=== PATIENT | female | born 1985 | race Caucasian/White ===

== ENCOUNTER 2016-10-17 08:47 | Emergency (ER) | payer SELFPAY ==
[2016-10-17 08:58] VITALS: BP 122/64; PULSE 90; TEMP 98.3; BMI 27.5
[2016-10-17] MEDS ORDERED: KETOROLAC TROMETHAMINE 10 MG TAB PO ONE (09:25)
--- NOTE | 2016-10-17 09:27 | EDPRACDOC ---
- General Information Chief Complaint: Toothache Stated Complaint: TOOTH PAIN Time Seen by Provider: 10/17/16 09:24 Mode Of Arrival: Car Home Medications: Home Medications Clindamycin HCl 300 mg PO TID 01/15/16 Ibuprofen 800 mg PO TID PRN 01/15/16 Amoxicillin [Amoxil] 500 mg PO BID #14 cap 10/17/16 Ketorolac Tromethamine 10 mg PO Q6H PRN #20 tab 10/17/16 Allergies/Adverse Reactions: Allergies Allergy/AdvReac Type Severity Reaction Status Date / Time Sulfa (Sulfonamide Allergy Hives* Verified 10/17/16 08:58 Antibiotics) - History of Present Illness Onset: 2 DAYS Pain Severity: Reports: Mild Relevant History of: Reports: None Modifying Factors: improves with: None Associated Signs and Symptoms: Reports: None - Treatment Prior to ED Arrival Reported Medications/Treatment INFORMATICS MANAGER Treated With Medication INFORMATICS MANAGER YES Aspirin (Dose/Time) ASA 325MG X 2-0800 ED Past Medical History - History Reviewed Yes Nurses notes reviewed and agree except as marked - Patient Medical History Systemic History: Denies: Cancer - Social Medical History Smoking Status: Heavy tobacco smoker (5 or more cigarettes/day or daily pipe/ cigar) EDM Review of Systems - Review of Systems ROS Negative Except as Marked: Yes All systems reviewed and were negative except as marked - Physical Exam Constitutional: No apparent distress Oriented to: Time, Person, Place Last recorded Vital Signs: Last Vital Signs Temp 98.3 F 10/17/16 08:55 Pulse 90 10/17/16 08:55 Resp 18 10/17/16 08:55 BP 122/64 10/17/16 08:55 Pulse Ox 97 10/17/16 08:55 Oxygen Pulse Oxygen Saturation 97 O2 Device Oxygen Flow Rate Fraction of Inspired Oxygen ( FIO2) ED Tooth Problem Exam - HEENT Face: Normal Teeth: Left: Molar-3 Lower Gingiva: Red Palate: Normal Mouth Range of Motion: Normal Decision Time to Discharge: 09:26 - Departure Yes I personally saw and evaluated the patient. Disposition: Home Condition: Good Final Diagnosis: Dental caries Instructions: Dental Caries (ED) Education/Counseling Given To: Patient, Family Member Education/Counseling Given Regarding: Diagnosis, Treatment, Prognosis Prescriptions: Amoxicillin [Amoxil] 500 mg PO BID #14 cap Ketorolac Tromethamine 10 mg PO Q6H PRN #20 tab PRN Reason: Pain Additional Instructions: FU WITH DENTIST [facility]
== END 2016-10-17 09:47 | disposition home or self-care (01) ==
LOC: ED 08:47
DX: K02.9 Dental caries, unspecified (principal); F17.200 Nicotine dependence, unspecified, uncomplicated
CPT/HCPCS: 99282; J3490